=== PATIENT | female | born 1965 | race Caucasian/White ===

== ENCOUNTER 2021-09-29 18:36 | Observation (INO) | payer BC, OTHER ==
[~2021-09-29] VITALS: Ht 172.7 cm; Wt 110.0 kg
--- NOTE | ~2021-09-29 | EKG ---
[facility] [address] [facility] [place], [place] [address] Draft EKG completed, results pending confirmation PATIENT NAME: DAVIDSONDEBORAH EATON Electrocardiogram DATE OF : 61 PHYSICIAN: PRELIMINARY REPORT #: [id number] REPORT IS CONFIDENTIAL AND NOT TO BE RELEASED WITHOUT AUTHORIZATION
[~2021-09-29 18:36] MED LIST: ALTACE10 MG PO; ALTACE2.5 MG PO; COQ-10100 MG PO; FISH OIL 1,0001 EAC2 PO; MULTI VITAMIN1 EACH PO; VITAMIN D400 UNI1 PO
[2021-09-29] MEDS ORDERED: ADULT LOW DOSE81 MG PO (18:58)
[2021-09-29] MEDS ORDERED: VITAMIN C1000 MG PO (18:59)
[2021-09-29] MEDS ORDERED: VITAMIN E400 UNI5 PO (18:59)
--- NOTE | 2021-09-29 23:02 | NUR ---
PT ARRIVES TO CCU ROOM 127 FOR NEW ONSET AFIB RVR. HAD HR UP TO 140'S IN ED PER REPORT WITH C/O PALPITATIONS. PT ARRIVES TO CCU WITH HR 80'S IN SINUS RHYTHM AND NO C/O PALPITATIONS. SBA TO BATHROOM TO VOID AND THEN HELPED TO POSITION IN BED. ASSESSMENT DONE. CARDIZEM DRIP TITRATED DOWN TO 8MG/HR. PT IS ALERT AND ORIENTED AND ABLE TO ANSWER ALL QUESTIONS. DENIES PAIN OR CHEST PRESSURE WELL PALPITATIONS OR SOB. LUNGS CLEAR WITH SPO2 98% ON ROOM AIR. DOES STATES SHE IS HUNGRY AND THIRSTY, CRUSHER OPERATOR NOTIFIED WHO WILL BE BRINGING A SANDWICH BOX. PLAN OF CARE DISCUSSED WITH PT AND QUESTIONS ANSWERED.
--- NOTE | 2021-09-29 23:25 | NUR ---
DR MCKEON CALLED AND UPDATED REGARDING PT IN SINUS RHYTHM. NO NEW ORDERS AT THIS TIME.
--- NOTE | 2021-09-29 23:34 | NUR ---
SANDWICH BOX PROVIDED TO PT.
--- NOTE | 2021-09-30 02:13 | NUR ---
PT RESTFUL, EYES CLOSED, RESP EVEN AND UNLABORED. HR 70'S CONTINUES IN SINUS RHYTHM. CARDIZEM DRIP TITRATED DOWN TO 4MG/HR.
--- NOTE | 2021-09-30 04:02 | NUR ---
IN TO CHECK ON PT, SHE IS AWAKE IN BED, STATES SHE USUALLY WAKES UP AT FOUR, UP TO BATHROOM TO VOID 400ML THEN BACK TO SIT ON EDGE OF BED FOR A WHILE. HR WENT FROM 80'S TO 105 WHILE UP BUT PT DENIES DIZZINESS OR LIGHTHEADEDNESS, GOES BACK DOWN TO 80'S QUICLY ONCE SITTING. DENIES ANY SOB/CHEST PAIN OR PRESSURE OR FEELING PALPITATIONS. ASSESSMENT DONE AND UNCHANGED FROM EARLIER ASSESSMENT. CALL LIGHT IN REACH, PT WANTING TO SIT AT EDGE OF BED FOR NOW. CARDIZEM DRIP CONTINUES INFUSING AT 4MG/HR.
--- NOTE | 2021-09-30 04:56 | NUR ---
REPLACED OXYGEN MONITOR TO PT FINGER, PT REQUESTED A WARM BLANKET, THIS IS PROVIDED, PT HAS NO OTHER CONCERNS AT THIS TIME.
--- NOTE | 2021-09-30 06:09 | NUR ---
IN TO SEE PT, PT RESTING IN BED, ORDERS BREAKFAST STATING SHE IS VERY HUNGRY.
--- NOTE | 2021-09-30 06:15 | NUR ---
CARDIELIJAHM DRIP TURNED OFF, WILL GIVE PO SEKOU.
--- NOTE | 2021-09-30 06:24 | EKG ---
[facility] [address] [facility] [place], [place] [address] Signed Atrial fibrillation with rapid ventricular response Left axis deviation Minimal voltage criteria for LVH, may be normal variant ( [place] product ) Abnormal ECG No previous ECGs available Confirmed by DARYA MCKEON MD ([id number]) on 09/30/2021 6:23:49 AM Electronically Signed By: DARYA MCKEON MD 09/30/21 0624 PATIENT NAME: DAVIDSONCHAYAKobeDEBORAH Electrocardiogram DATE OF : 61 PHYSICIAN: DARYA MCKEON MD REPORT #: [id number] REPORT IS CONFIDENTIAL AND NOT TO BE RELEASED WITHOUT AUTHORIZATION
--- NOTE | 2021-09-30 08:47 | NUR ---
IN PATIENT'S ROOM FOR MORNING ASSESSMENT AND VITALS. PT RESTING IN BED AT THIS TIME AND STATES SHE HAS A MILD HEADACHE. PT REPORTS THAT SHE IS HOPEFUL TO D/C HOME TODAY AFTER TALKING WITH DR. MCKEON THIS AM. PT WAITING ON BREAKFAST. PT DENIES ANY CHEST PAIN OR DIZZYNESS. PT REMAISN IN SINUS RHYTHM AND HAS BEEN SINCE LAST NIGHT WHEN SHE ARRIVED TO CCU. DILT GTT OFF SINCE AROUND 0600. AM CARDIZEM 120 XL WAS GIVEN THIS AM WELL. WILL CONTINUE TO MONITOR.
[2021-09-30] MEDS ORDERED: RAMIPRIL10 MG PO (09:06)
[2021-09-30] MEDS ORDERED: DILTIAZEM 24HR120 MG PO (11:09)
--- NOTE | 2021-09-30 11:59 | NUR ---
PATIENT UP TO THE HALLWAY AND AMBULATES 3 FULL LAPS IN CCU HALLWAY. PT TOLERATED THIS WELL WITHOUT ANY CHEST PAIN, DIZZYNESS OR ANY SYMPTOMS REALLY. HR UP TO 110 AT THE MOST. PT REMAINS IN A SINUS RHYTHM. PT WILL D/C HOME AND FOLLOW UP WITH HER PCP. PT NOT DISCHARGING ON ANTICOAGULANTS.
== END 2021-09-30 12:20 | disposition home or self-care (01) ==
LOC: ED 18:36 → CCU 18:39
PROVIDERS: ADMIT Internal Medicine; ATTEND Internal Medicine
DX: I48.91 Unspecified atrial fibrillation (principal); I10 Essential (primary) hypertension
CPT/HCPCS: 36415; 71045; 71260; 80048; 80053; 82803; 83735; 84443; 84484; 85025; 85379; 87502; 93005; 93010; C9803; J1650; J7030; Q9967; U0003

== ENCOUNTER 2021-10-13 11:02 | Emergency (ER) | payer BC, OTHER ==
[~2021-10-13] VITALS: Ht 177.8 cm; Wt 110.7 kg
[~2021-10-13 11:02] MED LIST changes: +ADULT LOW DOSE81 MG PO; +DILTIAZEM 24HR120 MG PO; +RAMIPRIL10 MG PO; +VITAMIN C1000 MG PO; +VITAMIN E400 UNI5 PO
--- OUTSIDE RECORDS SUMMARY | 2021-10-13 11:10 | XMS ---
PreManage Notification: DEBORAH BROWN Security Lead Sales Consultant Events No recent Security Events currently on file CRITERIA MET - [facility] - 2 Visits in 30 Days CARE PROVIDERS [facility] Physician Speech Language Pathologist Assistant Current PHONE: [phone] Agustina has no Care Guidelines for this patient. Jairon VISIT COUNT (12 MO.) 2 [facility] TOTAL 2 NOTE: Visits indicate total known visits. ED/C VISIT TRACKING (12 MO.) 10/13/2021 11:03 [facility] TYPE: Emergency COMPLAINT: - ERRATIC HEART RATE/PRESSURE 09/29/2021 18:38 [facility] TYPE: Emergency COMPLAINT: - IRREGULAR HEART RATE INPATIENT VISIT TRACKING (12 MO.) 09/29/2021 18:39 [facility] TYPE: Observation COMPLAINT: - RAPID ATRIAL FIBRILLATION DIAGNOSES: - Unspecified atrial fibrillation - Essential (primary) hypertension - Contact with and (suspected) exposure to COVID-19 [email or web address]
[2021-10-13] MEDS ORDERED: WARFARIN SODIUM5 MG PO (11:38)
[2021-10-13] MEDS ORDERED: POTASSIUM CHLO10 ME1 PO (11:40)
--- NOTE | 2021-10-13 15:35 | EKG ---
[facility] [address] [place] [address] Signed Normal sinus rhythm Left anterior fascicular block Minimal voltage criteria for LVH, may be normal variant ( [place] product ) Abnormal ECG When compared with ECG of 30-SEP-2021 04:17, No significant change was found Confirmed by DARA PEGUERO MD ([id number]) on 10/13/2021 3:35:16 PM Electronically Signed By: DARA PEGUERO MD 10/13/21 1535 PATIENT NAME: DEBORAH BROWN Electrocardiogram DATE OF : 61 PHYSICIAN: DARA PEGUERO MD REPORT #: [id number] REPORT IS CONFIDENTIAL AND NOT TO BE RELEASED WITHOUT AUTHORIZATION
== END 2021-10-13 13:53 | disposition home or self-care (01) ==
LOC: ED 11:02
DX: R00.2 Palpitations (principal); I10 Essential (primary) hypertension; Z79.899 Other long term (current) drug therapy; Z79.01 Long term (current) use of anticoagulants
CPT/HCPCS: 36415; 80053; 83735; 84484; 85025; 85610; 93005; 93010; 99285-25